=== PATIENT | female | born 1975 ===

== ENCOUNTER 2018-02-16 10:45 | Emergency (ER) | payer SELFPAY ==
[2018-02-16 11:04] VITALS: BP 115/66; PULSE 66; RESP 16; TEMP 98.4; O2SAT 99
[2018-02-16] MEDS ORDERED: LIDOCAINE HCL 1% 50 ML VIAL IM ONE (13:45)
[2018-02-16] MEDS ORDERED: KETOROLAC TROMETHAMINE 60 MG/2 ML (IM) VIAL IM ONE (13:45)
[2018-02-16 14:15] LABS: BACTERIA, URINE MOD /hpf; BILIRUBIN, URINE NEG (NEG); BLOOD, URINE NEG (NEG); GLUCOSE,URINE NEG (NEG); KETONE, URINE NEG (NEG); MUCUS URINE FEW /lpf (OCC); NITRITE,URINE NEG (NEG); PH, URINE 6.5 (5.0-8.5); SQUAMOUS EPITHELIAL CELL URINE 4 /hpf (0-5); URINE COLOR YELLOW (YELLW/STRAW); URINE LEUKOCYTE ESTERASE SMALL (NEG)
[2018-02-16] MEDS ORDERED: LIDOCAINE HCL 1% PF 30 ML VIAL INFIL ONE (14:15)
--- NOTE | 2018-02-16 14:20 | PD ---
HPI Chief Complaint: Back/ Neck Pain or Injury Time Seen by Provider: 13:15 Travel History International Travel<30 days: No Contact w/Intl Traveler<30days: No Traveled to known affect area: No History of Present Illness HPI 42-year-old female presents to the emergency department with complaint of left- sided mid back pain that started on Tuesday, is constant and fluctuates in intensity. Denies injury. Has history of frequent UTIs and reports current UTI symptoms. Says her urine is cloudy with increased urine frequency and the symptoms are consistent with past symptoms of UTI. Denies dysuria or hematuria. Was seen at urgent care prior to here and was told that she did not have a urinary infection and there was no blood in her urine. She was sent here to rule out kidney stones. She denies history of kidney stones. Denies fever, vomiting. Reports nausea. Reports chills. Says she took 2 doses of amoxicillin yesterday from her [facility] for her current symptoms. Rates pain 7/10. Was worse with movement. No pain when she lies on her left side and does not move. Has been taking Tylenol for symptom management. Last menstrual period was February 06. No contraception use. History of tubal ligation. No primary care provider. Denies significant past medical history. No known allergies. Has no other medical complaints. No other modifying factors or associated signs and symptoms. PFSH Social History Tobacco Use: No Allergies-Medications (Allergen,Severity, Reaction): Coded Allergies: No Known Allergies (Unverified , 02/16/18) Reported Meds & Prescriptions Reported Meds & Active Scripts Active Pyridium (Phenazopyridine HCl) 100 Mg Tab 100 Mg PO Q8H PRN 3 Days Keflex (Cephalexin) 500 Mg Cap 500 Mg PO Q12H 7 Days Review of Systems Except as stated in HPI: all other systems reviewed are Neg Physical Exam Narrative GENERAL: Well-nourished, well-developed female patient, in no acute distress SKIN: Warm and dry. No rash. HEAD: Atraumatic. Normocephalic. EYES: Pupils equal and round. No scleral icterus. No injection or drainage. ENT: Mucosa pink and moist. NECK: Trachea midline. CARDIOVASCULAR: Regular rate. RESPIRATORY: No accessory muscle use. GASTROINTESTINAL: Abdomen soft, non-tender, nondistended. Hepatic and splenic margins not palpable. Bowel sounds are active 4 quadrants. Bladder tender and nondistended. MUSCULOSKELETAL: No obvious deformities. No clubbing. No cyanosis. No edema. BACK: Left CVA tenderness. No reproducible tenderness on palpation of the musculature of the left mid back or midline thoracic spine. NEUROLOGICAL: Awake and alert. Oriented 3. No obvious cranial nerve deficits. Motor grossly within normal limits. Normal speech. Moves all extremities. 5/5 strength to all extremities. PSYCHIATRIC: Appropriate mood and affect; insight and judgment normal. Data Data Last Documented VS Vital Signs Date Time Temp Pulse Resp B/P (MAP) Pulse Ox O2 Delivery O2 Flow Rate FiO2 02/16/18 11:04 98.4 66 16 115/66 (82) 99 Orders Orders Urinalysis - C+S If Indicated (02/16/18 13:41) Lidocaine 1% Inj (50 Ml) (Xylocaine 1% I (02/16/18 13:45) Ceftriaxone Inj (Rocephin Inj) (02/16/18 13:45) Ketorolac Inj (Toradol Inj) (02/16/18 13:45) Lidocaine Pf 1% Inj (Xylocaine-Mpf 1% In (02/16/18 14:15) Urine Culture (02/16/18 13:40) Ed Discharge Order (02/16/18 14:40) Labs Laboratory Tests Test 02/16/18 13:40 Urine Color YELLOW Urine Turbidity CLEAR Urine pH 6.5 Urine Specific [place] 1.021 Urine Protein NEG mg/dL Urine Glucose (UA) NEG mg/dL Urine Ketones NEG mg/dL Urine Occult Blood NEG Urine Nitrite NEG Urine Bilirubin NEG Urine Urobilinogen LESS THAN 2.0 MG/DL Urine Leukocyte Esterase SMALL Urine RBC 1 /hpf Urine WBC 5 /hpf Urine Squamous Epithelial Cells 4 /hpf Urine Bacteria MOD /hpf Urine Mucus FEW /lpf Microscopic Urinalysis Comment CULTURE INDICATED MDM Medical Decision Making Medical Screen Exam Complete: Yes Emergency Medical Condition: Yes Medical Record Reviewed: Yes Differential Diagnosis UTI, cystitis, pyelonephritis, nephrolithiasis Narrative Course 42-year-old female with history of frequent UTIs and current UTI symptoms. Left -sided CVA tenderness. Suspecting pyelonephritis. Urinalysis ordered. Toradol and Rocephin ordered. 1440: Urinalysis with signs of infection. Keflex, ibuprofen, Pyridium prescribed for home. Instructed patient to follow up with primary care provider. Patient verbalizes understanding and agreement with treatment plan. Patient is medically cleared and stable for discharge. Discussed reasons to return to the emergency department. Patient agrees with treatment plan. The patients vital signs are stable and the patient is stable for outpatient follow- up and treatment. Patient discharged home, stable and in no acute distress. Diagnosis Primary Impression: Pyelonephritis Referrals: Primary Care Physician Patient Instructions: General Instructions, Urinary Tract Infection in Women ( ED) Additional Instructions: Take antibiotics as prescribed and complete full course Take Pyridium for bladder spasms: Pyridium will turn your urine bright orange Drink plenty of fluids Maintain good personal hygiene Follow-up with primary care provider Return to the emergency department immediately with worsening of symptoms Med/Other Pt SpecificInfo: Prescription(s) given Scripts Ibuprofen (Ibuprofen) 800 Mg Tab 800 MG PO Q6HR Y for PAIN, #30 TAB 0 Refills Prov: Ludy Gilliam 02/16/18 Phenazopyridine (Pyridium) 100 Mg Tab 100 MG PO Q8H Y for DYSURIA for 3 Days, #9 TAB 0 Refills Prov: Ludy Gilliam 02/16/18 Cephalexin (Keflex) 500 Mg Cap 500 MG PO Q12H for Infection for 7 Days, #14 CAP 0 Refills Prov: Ludy Gilliam 02/16/18 Disposition: 01 DISCHARGE HOME Condition: Stable Ludy Gilliam Feb 16, 2018 14:20
[2018-02-16] MEDS ORDERED: CEPH-460 PO (14:40)
[2018-02-16] MEDS ORDERED: PHEN0.4T PO (14:40)
[2018-02-16] MEDS ORDERED: IBUP1TAB7 PO (14:48)
== END 2018-02-16 14:50 | disposition home or self-care (01) ==
LOC: NEPK 10:45
DX: N12 Tubulo-interstitial nephritis, not specified as acute or chronic (principal); B96.20 Unspecified Escherichia coli [E. coli] as the cause of diseases classified elsewhere; Z87.440 Personal history of urinary (tract) infections
CPT/HCPCS: 81001; 87077; 87086; 87186; 96372; 99283; J0696; J1885